=== PATIENT | female | born 1950 | race Caucasian/White ===

== ENCOUNTER 2020-09-30 15:39 | Inpatient (IN) | payer MEDICARE, BC ==
[2020-09-30] MEDS ORDERED: Lorazepam 2 MG/ML VIAL ONE ×3 (15:41→22:49)
--- NOTE | 2020-09-30 15:56 | CT ---
CT HEAD WITHOUT IV CONTRAST COMPARISON: 11/09/2005 HISTORY: Level 1 stroke alert. Right gaze avulsion. TECHNIQUE: Axial CT imaging at 5 mm intervals from vertex through skull base without contrast FINDINGS: Mild cerebral volume loss is present not unexpected for patient's age. There is no evidence of an acu te infarction, hemorrhage, mass effect, or midline shift. The ventricular system is normal in size, shape, and position. Skull base has a normal CT appearance. Visualized paranasal sinuses are clear. Osseous structures appear intact. IMPRESSION: 1. No acute intracranial abnormality demonstrated. 2. Above findings discussed Dr. Devries in the emergency department on 09/30/2020 at 1551 hours.
[2020-09-30 16:00] LABS: #Basophils 0.1 thou/uL (0.0-0.2); #Lymphocytes 2.3 thou/uL (1.20-3.40); #Monocytes 0.7 thou/uL (0.11-0.59); #Neutrophils 7.9 thou/uL (1.40-6.50); %Basophils 0.8 % (0.0-1.0); %Eosinophils 0.2 % (0.0-10.0); %Lymphocytes 20.4 % (21.0-51.0); %Monocytes 6.6 % (0.0-10.0); Hemoglobin 14.4 g/dL (12.0-16.0); Mean Corpuscular HGB CONC 33.8 g/dL (32.0-36.0); Mean Corpuscular Hemoglobin 31.4 pg (27.0-31.0); Mean Corpuscular Volume 92.9 fL (78.0-98.0); Mean Platelet Volume 8.2 fL (7.4-10.4); Platelet Count 301 thou/uL (130-400); RBC Distribution Width 12.6 % (11.5-14.5); Red Blood Cell (RBC) Count 4.58 mill/uL (4.20-5.40)
[2020-09-30] MEDS ORDERED: niCARdipine 20MG In NaCl 0 MG/0 ML BAG ONE (16:02)
[2020-09-30 16:06] LABS: PTT 26.2 sec (22.9-36.1); Prothrombin Time 12.7 sec (12.0-14.7)
[2020-09-30 16:08] LABS: INR-International Normal Ratio 0.9
--- NOTE | 2020-09-30 16:21 | CT ---
EXAM: CT angiogram head and neck with IV contrast and 3-D reconstructions PROVIDED CLINICAL HISTORY: Level 1 stroke alert. Right gaze diversion. COMPARISON: None FINDINGS: Vascular calcifications are seen in the aortic arch. There is a normal arrangement of the great vesse ls at the aortic arch which are patent. Portions of the left subclavian artery as well as the most proximal left common carotid artery are partially obscured due to artifact from dense contrast within the adjacent venous structures. The right subclavian artery and innominate artery as well as visualized portions of the left subclavian artery are patent. Bilateral common carotid arteries are o therwise patent. There is mild atherosclerotic vascular calcifications and plaque seen in the distal common carotid ar teries bilaterally and at the carotid artery bifurcation. There is mild narrowing involving the proximal portion of each internal carotid artery, but the degree of narrowing is less than 50%. Gin us portion of each internal carotid artery appear irregular, but is felt to most likely be artifactual. Vascular calcifications are seen in the carotid siphons bilaterally. Bilateral vertebral arteries and basilar artery are patent. Posterior cerebral arteries are patent bi laterally. Bilateral anterior cerebral and middle cerebral arteries are patent. No focal stenosis or branch occl usion is appreciated. No intracranial aneurysm is seen. There is a subcentimeter hypodense nodule seen in the right lobe of the thyroid gland. Visualized upper lung zones are clear. Degenerative changes are seen in the cervical spine. IMPRESSION: 1. Mild atherosclerotic plaque and calcifications involving the proximal internal carotid arteries bi laterally without significant stenosis. 2. Suggested irregularity involving petrous portions of each internal carotid artery, but this is lik justina artifactual given the symmetric finding. 3. No focal stenosis or branch occlusion is seen involving the [place] or vertebrobasilar sy stem. 4. Small subcentimeter hypodense nodule right lobe of thyroid gland. Follow-up thyroid ultrasound is suggested. 5. Above findings discussed with Dr. Devries in the emergency department on 09/30/2020 at 1618 hours
[2020-09-30 16:25] LABS: ALT (SGPT) Less than 7 U/L (8-55); AST (SGOT) 10 U/L (5-34); Albumin 4.5 g/dL (3.4-4.8); Alkaline Phosphatase 110 U/L (40-110); Anion Gap 23 mmol/L (10-20); BUN (Urea Nitrogen) 15 mg/dL (9.8-20.1); Bilirubin, Total 0.5 mg/dL (0.2-1.2); CK (CPK) 56 U/L (29-168); Calc. Creatinine Clearance 0 mL/min (70-130); Carbon Dioxide 20 mmol/L (23-31); Chloride 102 mmol/L (98-107); Globulin 3.8 g/dL (2.4-3.5); Glucose 120 mg/dL (80-115); Potassium 4.7 mmol/L (3.5-5.1); Protein, Total 8.3 g/dL (5.8-8.1); Sodium 140 mmol/L (136-145)
[2020-09-30 16:32] LABS: Magnesium 1.9 mg/dL (1.6-2.6)
[2020-09-30 16:33] LABS: Lipase Less than 4 U/L (8-78)
--- NOTE | 2020-09-30 16:53 | RAD ---
Exam: Chest one view HISTORY:Level 1 stroke. Altered mental status. Comparison: 06/19/2009 FINDINGS: Cardiac silhouette: Normal Aorta: Unremarkable Pulmonary vessels: Normal Costophrenic angles: Clear LUNGS: No masses or consolidation. Pneumothorax: None Osseous abnormalities: None IMPRESSION: No acute cardiopulmonary process.
[2020-09-30 16:57] LABS: Bilirubin Negative (Negative); Blood, Urine Negative (Negative); Clarity Clear (Clear); Glucose, Urine (Dipstick) Normal (Negative); Ketone, Urine 40 mg/dL (Negative); Leukocyte Negative Leu/uL (Negative); Nitrite Negative (Negative); Protein, Urine (Dipstick) 10 mg/dL (Neg-Trace); Urobilinogen Normal mg/dL (Less than 2)
[2020-09-30 17:00] LABS: Specific Gravity, Urine Greater than 1.060 (1.002-1.036)
[2020-09-30] MEDS ORDERED: Aspirin Chewable 81 MG TAB ONE (17:18)
--- NOTE | 2020-09-30 17:34 | PDOC.HHP ---
Hospitalist HPI - History of Present Illness Aphasia History of Present Illness: PCP: Dr. Templeton The patient is a 70-year-old female with a past medical history significant for severe anxiety/depression, agoraphobia, Parkinson's disease and hypothyroidism that presents to the emergency department via EMS for the above complaint. The patient and her sister, who was present at that time reports that the patient had the acute onset of aphasia at approximately 2:30 in the afternoon. They report that the patient was speaking on the phone to someone, however, the patient sister could not hear what she was saying. When she went to check on the patient, the patient was unable to speak or follow any commands. Her sister reports that she has Parkinson's disease and when she gets tired, she tends to have difficulty speaking and has increased tremor. She also suffers from "severe anxiety" and has a fear of going to the hospital. Over the past couple days, the patient has been dealing with multiple stressors at home, which has "worn her out". Patient is adamant that her symptoms are from her anxiety and Parkinson's disease. Patient denies any recent fall/trauma. She denies any recent fever/illness. No known Covid contacts. She admits to loss of smell, however, this is chronic due to her Parkinson's disease. She reports the addition of a new medication called ONGENTYS, which she started 2 days ago. She has taken 2 doses at night. She denies any recent surgeries. She denies any chest pain, heart palpitations or lightheadedness. She denies any shortness of breath, cough or wheezing. No history of DVT/PE. She denies any abdominal pain, nausea, vomiting, diarrhea. No hematochezia/melena. She denies any dysuria or hematuria. ED Course: VITAL SIGNS WedSep 30, 2020 15:48 MARITZA Sommer Jennifer BP: 152/90, Pulse: 135, Resp: 25 (Severe Distress), Pain: 0, O2 sat: 100 on (Non Rebreather), Time: 09/30/2020 15:48. VITAL SIGNS WedSep 30, 2020 16:19 MARITZA Sommer Jennifer BP: 176/68, MAP: 104, Pulse: 94, Resp: 17, Temp: 97.7 (Oral), Pain: 0, O2 sat: 99 on (Room Air), Time: 09/30/2020 16:19. Medications: aspirin oral 324 mg Oral Given 17:23 09/30/2020 carbidopa-levodopa 3 tab(s) Oral Given 17:15 09/30/2020 LORazepam injection 1 mg IV Push Given 16:06 09/30/2020 LORazepam injection 1 mg IV Push Given 15:48 09/30/2020 Hospitalist ROS - Review of Systems All other systems reviewed; all pertinent +/- noted in HPI/Subj - Medication Medications: ALPRAZolam WedSep 30, 2020 16:48 MARITZA Sommer Jennifer tablet : Strength - 0.5 mg : ORAL Patient Dose: 1 tab(s) Oral every 8 hours PRN. apple cider vinegar WedSep 30, 2020 16:48 MARITZA Sommer Jennifer tablet : Strength - 500 mg : ORAL Patient Dose: UNK mg Oral once a day. B Complex oral WedSep 30, 2020 16:49 MARITZA Sommer Jennifer capsule : ORAL Patient Dose: 1 cap(s) Oral once a day. Calcium Citrate + D WedSep 30, 2020 16:50 MARITZA Sommer Jennifer tablet : Strength - 315 mg calcium-200 unit : ORAL Patient Dose: 1 tab(s) Oral 2 times a day. carbidopa-levodopa WedSep 30, 2020 16:51 MARITZA Sommer Jennifer tablet : Strength - 25 mg-100 mg : ORAL Patient Dose: 3 tab(s) Oral every 3 to 5 hours. Co Q-10 WedSep 30, 2020 16:52 MARITZA Sommer Jennifer capsule : Strength - 30 mg : ORAL Patient Dose: 1 tab(s) Oral 3 times a day. donepezil WedSep 30, 2020 16:53 MARITZA Sommer Jennifer + tablet : Strength - 10 mg : ORAL Patient Dose: 1 tab(s) Oral once a day (at bedtime). DULoxetine WedSep 30, 2020 16:53 MARITZA Sommer Jennifer capsule,delayed release(DR/EC) : Strength - 60 mg : ORAL Patient Dose: 2 cap(s) Oral once a day. levothyroxine oral WedSep 30, 2020 16:53 Avery, RN, Idalia tablet : Strength - 50 mcg : ORAL Patient Dose: 1 tab(s) Oral once a day (in the morning). mirtazapine WedSep 30, 2020 16:54 MARITZA Sommer Jennifer tablet : Strength - 30 mg : ORAL Patient Dose: 1 tab(s) Oral once a day (at bedtime). Monte[place] 3 capsule WedSep 30, 2020 16:55 MARITZA Sommer Jennifer capsule : ORAL Patient Dose: 1 g Oral 2 times a day. ONGENTYS WedSep 30, 2020 16:56 MARITZA Sommer Jennifer Allergies: No known drug allergies Hospitalist History - Past Medical History Source: patient, RN notes reviewed Cardiac: reports: HTN Pulmonary: reports: Other (TAWANDA with CPAP at night) POMPOM MAKER: reports: Other (Parkinsons Disease) Psych: reports: Anxiety, Depression, Other (Agoraphobia) Endocrine: reports: Hypothyroidism - Past Surgical History Past Surgical History: reports: Appendectomy, Other (bunion of right foot, left knee sx) - Family History Family History: denies: cerebrovascular accident - Social History Smoking Status: Never smoker Alcohol: reports: None Drugs: reports: none Living Situation: With Family (Sister currently lives with her at home) Occupation: Retired from [employer] Activity level: uses cane/walker - Exam General Appearance: NAD, awake alert. negative: ill appearing General - other findings: Facial twisting, intermittent, baseline per patient and sister Eye: PERRL, anicteric sclera ENT: normocephalic atraumatic, dry oral mucosa Neck: supple, no lymphadenopathy, no carotid bruit Heart: RRR, no murmur, no gallops, no rubs, normal peripheral pulses Respiratory: CTAB, no wheezes, no rales, no ronchi, normal chest expansion, no tachypnea Gastrointestinal: soft, non-tender, non-distended, normal bowel sounds, no guarding, no rigidity Extremities: no cyanosis, no edema Skin: no rashes Neurological: cranial nerve grossly intact, no focal deficits Neurological - other findings: Slowed speech, baseline per patient and sister NIH 0 Psychiatric: normal affect, A&O x 3 Hospitalist Results - Labs Result Diagrams: 09/30/20 15:45 09/30/20 15:45 Lab results: WBC 11.0 thou/uL (4.8-10.8) H 09/30/20 15:45 Hgb 14.4 g/dL (12.0-16.0) 09/30/20 15:45 Hct 42.6 % (36.0-47.0) 09/30/20 15:45 MCV 92.9 fL (78.0-98.0) 09/30/20 15:45 Plt Count 301 thou/uL (130-400) 09/30/20 15:45 Neutrophils % 72.0 % (42.0-75.0) 09/30/20 15:45 Sodium 140 mmol/L (136-145) 09/30/20 15:45 Potassium 4.7 mmol/L (3.5-5.1) 09/30/20 15:45 Chloride 102 mmol/L (98-107) 09/30/20 15:45 Carbon Dioxide 20 mmol/L (23-31) L 09/30/20 15:45 BUN 15 mg/dL (9.8-20.1) 09/30/20 15:45 Creatinine 0.84 mg/dL (0.6-1.1) 09/30/20 15:45 Glucose 120 mg/dL (80-115) H 09/30/20 15:45 Calcium 10.0 mg/dL (7.8-10.44) 09/30/20 15:45 Total Bilirubin 0.5 mg/dL (0.2-1.2) 09/30/20 15:45 AST 10 U/L (5-34) 09/30/20 15:45 ALT Less than 7 U/L (8-55) L 09/30/20 15:45 Alkaline Phosphatase 110 U/L (40-110) 09/30/20 15:45 Creatine Kinase 56 U/L (29-168) 09/30/20 15:45 Troponin I Less than 0.010 ng/mL (< 0.028) 09/30/20 15:45 B-Natriuretic Peptide 57.0 pg/mL (0-100) 09/30/20 15:45 Serum Total Protein 8.3 g/dL (5.8-8.1) H 09/30/20 15:45 Albumin 4.5 g/dL (3.4-4.8) 09/30/20 15:45 Lipase Less than 4 U/L (8-78) L 09/30/20 15:45 Urine Ketones 40 mg/dL (Negative) A 09/30/20 16:32 Urine Blood Negative (Negative) 09/30/20 16:32 Urine Nitrite Negative (Negative) 09/30/20 16:32 Ur Leukocyte Esterase Negative Luisana/uL (Negative) 09/30/20 16:32 - EKG Interpretation EKG: Heart rate 89 QTc 481 normal sinus rhythm inferior lateral T wave depressions no ST elevation - Radiology Interpretation Chest x-ray Status: report reviewed by me Additional Comment: IMPRESSION: No acute cardiopulmonary process. CT scan - head Status: report reviewed by me Additional Comment: CT brain IMPRESSION: 1. No acute intracranial abnormality demonstrated. 2. Above findings discussed Dr. Devries in the emergency department on 09/30/2020 at 1551 hours. CTA head and neck IMPRESSION: 1. Mild atherosclerotic plaque and calcifications involving the proximal internal carotid arteries bilaterally without significant stenosis. 2. Suggested irregularity involving petrous portions of each internal carotid artery, but this is likely artifactual given the symmetric finding. 3. No focal stenosis or branch occlusion is seen involving the [place] or vertebrobasilar system. 4. Small subcentimeter hypodense nodule right lobe of thyroid gland. Follow-up thyroid ultrasound is suggested. 5. Above findings discussed with Dr. Devries in the emergency department on 09/30/2020 at 1618 hours Hospitalist H&P A/P - Problem (1) TIA (transient ischemic attack) Code(s): G45.9 - TRANSIENT CEREBRAL ISCHEMIC ATTACK, UNSPECIFIED Status: Acute (2) Thyroid nodule Code(s): E04.1 - NONTOXIC SINGLE THYROID NODULE Status: Acute (3) Parkinsons disease Code(s): G20 - PARKINSON'S DISEASE Status: Chronic (4) Anxiety and depression Code(s): F41.9 - ANXIETY DISORDER, UNSPECIFIED; F32.9 - MAJOR DEPRESSIVE DISORDER, SINGLE EPISODE, UNSPECIFIED Status: Chronic (5) Obstructive sleep apnea Code(s): G47.33 - OBSTRUCTIVE SLEEP APNEA (ADULT) (PEDIATRIC) Status: Chronic - Plan Plan: A patient with Parkinson's disease and severe anxiety presents for aphasia. CT brain/CTA head and neck no acute intracranial process or significant stenosis. Patient not a TPA candidate due to rapid improvement of symptoms. #TIA Acute onset aphasia last seen normal 1434, 1 hour STYLE ADVISOR Rapid improvement of symptoms, no TPA CT/CTA no no acute intracranial process, no significant stenosis Patient has severe anxiety and Parkinson's disease and has had episodes similar in the past. Reports recent stressors at home which may have compounded the problem. TIA versus PD/anxiety Order MRI, echocardiogram. Consult neurology and stroke team. Continue aspirin, start high intensity statin. Check TSH, FLP, B12/folate. Permissive hypertension. Neurochecks. #Thyroid nodule Incidental finding on CTA neck. Recommend follow-up ultrasound, nonemergent. History of hypothyroidism. Check TSH. Restart home dose levothyroxine. #Parkinson's disease Takes carbidopa levodopa. Received home dose in ED. Recently started new medication, Ongentys 2 days ago Restart carbidopa-levodopa, hold Ongentys for now. #Anxiety depression Patient and sister reports severe anxiety. Patient reports diagnosed with agoraphobia recently. Takes duloxetine and mirtazapine and alprazolam as needed. Restart home medications. #Obstructive sleep apnea Compliant with home CPAP. Consult RT for CPAP at night. #SCDs for DVT prophylaxis. No GI prophylaxis. CODE STATUS is DN AR. Confirmed CODE STATUS with patient who is of sound mind and sister at bedside. Discussed case with attending physician, Dr. Earl, who agrees with plan of care.
[2020-09-30] MEDS ORDERED: hydrALAZINE 20 MG/ML VIAL SLOW IVP PRN (18:13)
[2020-09-30] MEDS ORDERED: Labetalol HCl 100 MG/20 ML VIAL SLOW IVP PRN (18:13)
[2020-09-30] MEDS ORDERED: Senokot S 8.6-50 MG TAB PO PRN (18:16)
[2020-09-30] MEDS ORDERED: Acetaminophen 325 MG TAB PO PRN (18:16)
[2020-09-30] MEDS ORDERED: Ondansetron ODT 4 MG TAB PO PRN (18:16)
[2020-09-30 18:51] LABS: SARS-CoV-2 NAA Rapid Test Not Detected (NotDetected)
[2020-09-30 20:03] LABS: Troponin I 0.026 ng/mL (< 0.028)
[2020-09-30 20:29] LABS: Thyroid Stimulating Hormone 1.1124 uIU/mL (0.35-4.94)
[2020-09-30 20:31] LABS: Vitamin B12 Greater than 2000 pg/mL (211-911)
[2020-09-30 23:00] LABS: Troponin I 0.031 ng/mL (< 0.028)
[2020-10-01] MEDS: Atorvastatin Calcium 40 MG TAB PO SCH ×2 (01:07→21:04)
[2020-10-01 02:03] VITALS: BMI 34.7
[2020-10-01 05:44] LABS: #Basophils 0.1 thou/uL (0.0-0.2); #Lymphocytes 1.7 thou/uL (1.20-3.40); #Monocytes 0.6 thou/uL (0.11-0.59); #Neutrophils 4.8 thou/uL (1.40-6.50); %Basophils 0.7 % (0.0-1.0); %Eosinophils 0.4 % (0.0-10.0); %Lymphocytes 23.7 % (21.0-51.0); %Monocytes 7.6 % (0.0-10.0); %Neutrophils 67.6 % (42.0-75.0); Hemoglobin 12.5 g/dL (12.0-16.0); Mean Corpuscular HGB CONC 33.6 g/dL (32.0-36.0); Mean Corpuscular Hemoglobin 31.2 pg (27.0-31.0); Platelet Count 225 thou/uL (130-400); RBC Distribution Width 12.5 % (11.5-14.5); White Blood Cell (WBC) Count 7.1 thou/uL (4.8-10.8)
[2020-10-01 06:31] LABS: Anion Gap 12 mmol/L (10-20); BUN (Urea Nitrogen) 10 mg/dL (9.8-20.1); Calc. Creatinine Clearance 110 mL/min (70-130); Calcium 8.9 mg/dL (7.8-10.44); Carbon Dioxide 29 mmol/L (23-31); Cardiac Risk 3.1 (Less than 4.5); Chloride 103 mmol/L (98-107); Cholesterol 188 mg/dl (< 200 Desired); Glucose 93 mg/dL (80-115); HDL Cholesterol 60 mg/dL (>60 Neg Risk); LDL Cholesterol, Calculated 109 mg/dL; Potassium 3.7 mmol/L (3.5-5.1); Sodium 140 mmol/L (136-145); Triglycerides 96 mg/dL (Less than 150)
[2020-10-01] MEDS ORDERED: FLU VACC QS2020-21(65YR UP)/PF 240 MCG/0.7 ML SYRINGE IM ONE (09:00)
[2020-10-01] MEDS: Aspirin 325 mg Enteric Coated Tablet PO SCH (09:27)
[2020-10-01] MEDS: Lorazepam 2 MG/ML VIAL SLOW IVP PRN ×2 (11:34→18:31)
--- NOTE | 2020-10-01 12:38 | MRI ---
MRI of thebrain without contrast: 10/01/2020 COMPARISON:None available HISTORY:Difficulty talking last night, possible stroke TECHNIQUE: Multiplanar multisequence MR imaging of thebrain without contrast Findings:The diffusion weighted imaging demonstrates no evidence for acute infarction. No evidence for intracranial hemorrhage is noted on the axial gradient echo imaging. Arterial flow voids at the axial level of the skull base appear unremarkable on the T2-weighted imagi ng. Motion degrades assessment of the axial T2 sequence. The imaged paranasal sinuses and mastoid air cells appear grossly unremarkable. Regional bone marrow signal intensity appears unremarkable on the sagittal T1-weighted imaging. There are a few punctate foci of increased STIR signal within the periventricular white matter sugges ting minimal small vessel disease. IMPRESSION:No evidence for acute infarction or intracranial hemorrhage.
--- NOTE | 2020-10-01 13:16 | CON ---
NEUROLOGY CONSULTATION DATE OF CONSULTATION: 10/01/2020 REASON FOR CONSULTATION: Transient ischemic attack HISTORY OF PRESENT ILLNESS: Ms. Hanny Salcedo is a 70-year-old female with medical history significant for severe anxiety, depression, agoraphobia, Parkinson disease, and hypothyroidism, presented to the emergency department via EMS because of an episode of aphasia. According to the patient's sister, she had acute onset of aphasia approximately 2:30 p.m. on 09/30/2020 and she was not able to hear anything and she has difficulty to speak and seems confused. Per patient's sister, she does have history of Parkinson disease and usually gets tired and has difficulty but this episode was different from her usual presentation, so she decided to bring her to the emergency room for further evaluation. The patient denies any focal numbness, focal paresthesias, nausea, vomiting, headache, chest pain, abdominal pain, recent illness, or recent exposure to COVID. She does have difficulty walking and speaking and due to Parkinson disease and generalized weakness and chronic loss of smell, she was started on a new medication 2 days ago. In the emergency room, she was given aspirin, Parkinson's medication, Ativan for anxiety, and admitted for further evaluation. REVIEW OF SYSTEMS: All systems reviewed and were negative except the pertinent positive and negative mentioned in the HPI. HOME MEDICATIONS: 1. Alprazolam. 2. Vitamin B complex. 3. Calcium citrate. 4. Carbidopa-levodopa. 5. Coenzyme Q. 6. Donepezil. 7. Duloxetine. 8. Levothyroxine. 9. Mirtazapine. 10. Kalama-3. 11. Ongentys new medication. ALLERGIES: NO KNOWN DRUG ALLERGIES. PAST MEDICAL HISTORY: Hypertension, obstructive sleep apnea with CPAP at night, Parkinson disease, anxiety, depression, depression, hypothyroidism. PAST SURGICAL HISTORY: Appendectomy. FAMILY HISTORY: No family history of cerebrovascular accident. SOCIAL HISTORY: The patient lives with family. Sister is currently living with her at home. Denies smoking, alcohol, illegal drug use. She is retired from [employer] and uses a cane and a walker. Vital Signs & Weight: Vital Signs (12 hours) Temp Pulse Pulse Pulse Resp BP BP 10/01/20 11:56 98.5 F 76 20 10/01/20 10:05 88 87 118/56 L 118/59 L 10/01/20 07:55 98.7 F 70 20 10/01/20 04:15 97.8 F 71 20 BP Pulse Ox 10/01/20 11:56 127/59 L 96 10/01/20 10:05 10/01/20 07:55 124/60 96 10/01/20 04:15 136/60 93 L Weight Weight 196 lb I&O: 09/30/20 10/01/20 10/02/20 06:59 06:59 06:59 Intake Total 480 Balance 480 Result Diagrams: 10/01/20 05:20 10/01/20 05:20 Additional Labs: Accuchecks 09/30/20 15:41 POC Glucose 111 H Active Medications Generic Name Dose Route Start Last Admin Trade Name Jean-Claude PRN Reason Stop Dose Admin Aspirin 325 mg 10/01/20 09:00 10/01/20 09:27 Aspirin 325 Mg Enteric Coated Tablet PO 325 mg DAILY STEFAN Administration Atorvastatin Calcium 40 mg 09/30/20 21:00 10/01/20 01:07 Atorvastatin Calcium 40 Mg Tab PO Not Given HS STEFAN Carbidopa/Levodopa 1.5 tab 10/01/20 12:00 10/01/20 14:46 Carbidopa/Levodopa Cr 50-200 Mg Tablet PO Not Given [id number] STEFAN Lorazepam 1 mg 09/30/20 22:14 10/01/20 11:34 Lorazepam 2 Mg/Ml Vial SLOW IVP 1 mg Q4H PRN Administration Anxiety Vital Signs (12 hours) Temp Pulse Pulse Pulse Resp BP BP 10/01/20 11:56 98.5 F 76 20 10/01/20 10:05 88 87 118/56 L 118/59 L 10/01/20 07:55 98.7 F 70 20 10/01/20 04:15 97.8 F 71 20 BP Pulse Ox 10/01/20 11:56 127/59 L 96 10/01/20 10:05 10/01/20 07:55 124/60 96 10/01/20 04:15 136/60 93 L Weight Weight 196 lb PHYSICAL EXAMINATION: General Appearance: NAD, awake alert. negative: ill appearing General - other findings: Facial twisting, intermittent, baseline per patient and sister Eye: PERRL, anicteric sclera ENT: normocephalic atraumatic, dry oral mucosa Neck: supple, no lymphadenopathy, no carotid bruit Heart: RRR, no murmur, no gallops, no rubs, normal peripheral pulses Respiratory: CTAB, no wheezes, no rales, no ronchi, normal chest expansion, no tachypnea Gastrointestinal: soft, non-tender, non-distended, normal bowel sounds, no guarding, no rigidity Extremities: no cyanosis, no edema Skin: no rashes Neurological: Mental status, the patient is alert and oriented to person, place, and time. Slow speech, but no receptive aphasia or dysarthria. Cranial nerves 2 through 12 intact. Motor, muscle tone is increased. Bulk is normal. Moving all 4 extremities equally and symmetrically. Sensory withdraws to nailbed pressure bilaterally. Gait deferred due to patient's safety reason. Positive tremor. DATA REVIEWED: I review the labs and head CT, which did not reveal any acute intracranial pathology. CTA of the head and neck did not reveal hemodynamically significant stenosis. Lab results: WBC 11.0 thou/uL (4.8-10.8) H 09/30/20 15:45 Hgb 14.4 g/dL (12.0-16.0) 09/30/20 15:45 Hct 42.6 % (36.0-47.0) 09/30/20 15:45 MCV 92.9 fL (78.0-98.0) 09/30/20 15:45 Plt Count 301 thou/uL (130-400) 09/30/20 15:45 Neutrophils % 72.0 % (42.0-75.0) 09/30/20 15:45 Sodium 140 mmol/L (136-145) 09/30/20 15:45 Potassium 4.7 mmol/L (3.5-5.1) 09/30/20 15:45 Chloride 102 mmol/L (98-107) 09/30/20 15:45 Carbon Dioxide 20 mmol/L (23-31) L 09/30/20 15:45 BUN 15 mg/dL (9.8-20.1) 09/30/20 15:45 Creatinine 0.84 mg/dL (0.6-1.1) 09/30/20 15:45 Glucose 120 mg/dL (80-115) H 09/30/20 15:45 Calcium 10.0 mg/dL (7.8-10.44) 09/30/20 15:45 Total Bilirubin 0.5 mg/dL (0.2-1.2) 09/30/20 15:45 AST 10 U/L (5-34) 09/30/20 15:45 ALT Less than 7 U/L (8-55) L 09/30/20 15:45 Alkaline Phosphatase 110 U/L (40-110) 09/30/20 15:45 Creatine Kinase 56 U/L (29-168) 09/30/20 15:45 Troponin I Less than 0.010 ng/mL (< 0.028) 09/30/20 15:45 B-Natriuretic Peptide 57.0 pg/mL (0-100) 09/30/20 15:45 Serum Total Protein 8.3 g/dL (5.8-8.1) H 09/30/20 15:45 Albumin 4.5 g/dL (3.4-4.8) 09/30/20 15:45 Lipase Less than 4 U/L (8-78) L 09/30/20 15:45 Urine Ketones 40 mg/dL (Negative) A 09/30/20 16:32 Urine Blood Negative (Negative) 09/30/20 16:32 Urine Nitrite Negative (Negative) 09/30/20 16:32 Ur Leukocyte Esterase Negative Luisana/uL (Negative) 09/30/20 16:32 - EKG Interpretation EKG: Heart rate 89 QTc 481 normal sinus rhythm inferior lateral T wave depressions no ST elevation - Radiology Interpretation Chest x-ray Status: report reviewed by me Additional Comment: IMPRESSION: No acute cardiopulmonary process. CT scan - head Status: report reviewed by me Additional Comment: CT brain IMPRESSION: 1. No acute intracranial abnormality demonstrated. CTA head and neck IMPRESSION: 1. Mild atherosclerotic plaque and calcifications involving the proximal internal carotid arteries bilaterally without significant stenosis. 2. Suggested irregularity involving petrous portions of each internal carotid artery, but this is likely artifactual given the symmetric finding. 3. No focal stenosis or branch occlusion is seen involving the [place] or vertebrobasilar system. 4. Small subcentimeter hypodense nodule right lobe of thyroid gland. Follow-up thyroid ultrasound is suggested. ASSESSMENT AND PLAN: (1) TIA (transient ischemic attack) Code(s): G45.9 - TRANSIENT CEREBRAL ISCHEMIC ATTACK, UNSPECIFIED Status: Acute (2) Thyroid nodule Code(s): E04.1 - NONTOXIC SINGLE THYROID NODULE Status: Acute (3) Parkinsons disease Code(s): G20 - PARKINSON'S DISEASE Status: Chronic (4) Anxiety and depression Code(s): F41.9 - ANXIETY DISORDER, UNSPECIFIED; F32.9 - MAJOR DEPRESSIVE DISORDER, SINGLE EPISODE, UNSPECIFIED Status: Chronic (5) Obstructive sleep apnea Code(s): G47.33 - OBSTRUCTIVE SLEEP APNEA (ADULT) (PEDIATRIC) Status: Chronic Ms. Hanny Lorenzana is a 70-year-old female with history significant for Parkinson disease and anxiety, presented with an episode of aphasia. Head CT reviewed, which was negative for acute intracranial pathology. CT of the head and neck did not reveal hemodynamically significant stenosis. Consider MRI of the brain to rule out acute intracranial process. 2D echo to evaluate for left ventricular ejection fraction and to rule out thrombus or patent foramen ovale. Telemetry to rule out arrhythmia. Continue aspirin and high-intensity statin for secondary stroke prevention. Check hemoglobin A1c, fasting lipid panel, vitamin B12, folate, and TSH. Permissive control of blood pressure at this time. Strict control of blood glucose. EEG to rule out cortical irritability. Continue Parkinson's medications. Continue home medications. Continue medical management per primary team. PT/OT/Speech. Deep venous thrombosis prophylaxis. Plan discussed in detail. We will continue to follow. Thank you for the consult. Job ID: [id number] [id number]
[2020-10-01] MEDS: Carbidopa/Levodopa CR 50-200 mg Tablet PO SCH ×6 (14:40→23:01)
--- NOTE | 2020-10-01 15:23 | PDOC.HOSPP ---
- Subjective Encounter Date: 10/01/20 Encounter Time: 09:45 Subjective: is speaking fluently now, has no weakness anywhere her sister is at bedside no chest pain or palp or nausea has not amb yet, normally walks with walker at home - Objective Vital Signs & Weight: Vital Signs (12 hours) Temp Pulse Pulse Pulse Resp BP BP 10/01/20 11:56 98.5 F 76 20 10/01/20 10:05 88 87 118/56 L 118/59 L 10/01/20 07:55 98.7 F 70 10/01/20 04:15 97.8 F 71 20 BP Pulse Ox 10/01/20 11:56 127/59 L 96 10/01/20 10:05 10/01/20 07:55 124/60 96 10/01/20 04:15 136/60 93 L Weight Weight 196 lb I&O: 09/30/20 10/01/20 10/02/20 06:59 06:59 06:59 Intake Total 480 Balance 480 Result Diagrams: 10/01/20 05:20 10/01/20 05:20 Additional Labs: Accuchecks 09/30/20 15:41 POC Glucose 111 H Hospitalist ROS - Medication Medications: Active Medications Generic Name Dose Route Start Last Admin Trade Name Freq PRN Reason Stop Dose Admin Aspirin 325 mg 10/01/20 09:00 10/01/20 09:27 Aspirin 325 Mg Enteric Coated Tablet PO 325 mg DAILY STEFAN Administration Atorvastatin Calcium 40 mg 09/30/20 21:00 10/01/20 01:07 Atorvastatin Calcium 40 Mg Tab PO Not Given HS STEFAN Carbidopa/Levodopa 1.5 tab 10/01/20 12:00 10/01/20 14:46 Carbidopa/Levodopa Cr 50-200 Mg Tablet PO Not Given [id number] STEFAN Lorazepam 1 mg 09/30/20 22:14 10/01/20 11:34 Lorazepam 2 Mg/Ml Vial SLOW IVP 1 mg Q4H PRN Administration Anxiety Hospitalist Exam Vitals: Vital Signs (12 hours) Temp Pulse Pulse Pulse Resp BP BP 10/01/20 11:56 98.5 F 76 20 10/01/20 10:05 88 87 118/56 L 118/59 L 10/01/20 07:55 98.7 F 70 20 10/01/20 04:15 97.8 F 71 20 BP Pulse Ox 10/01/20 11:56 127/59 L 96 10/01/20 10:05 10/01/20 07:55 124/60 96 10/01/20 04:15 136/60 93 L Weight Weight 196 lb General Appearance: awake alert Eye: PERRL, anicteric sclera ENT: normocephalic atraumatic, moist mucosa Neck: supple, no JVD Heart: RRR, no murmur Respiratory: no wheezes, no rales, no ronchi Gastrointestinal: soft, non-tender, non-distended, normal bowel sounds Extremities: no cyanosis, no edema Neurological: cranial nerve grossly intact, no focal deficits Psychiatric: normal affect, A&O x 3 Hosp A/P (1) TIA (transient ischemic attack) Code(s): G45.9 - TRANSIENT CEREBRAL ISCHEMIC ATTACK, UNSPECIFIED Status: Acute (2) Anxiety and depression Code(s): F41.9 - ANXIETY DISORDER, UNSPECIFIED; F32.9 - MAJOR DEPRESSIVE DISORDER, SINGLE EPISODE, UNSPECIFIED Status: Chronic (3) Obstructive sleep apnea Code(s): G47.33 - OBSTRUCTIVE SLEEP APNEA (ADULT) (PEDIATRIC) Status: Chronic (4) Parkinsons disease Code(s): G20 - PARKINSON'S DISEASE Status: Chronic (5) Obesity (BMI 30.0-34.9) Code(s): E66.9 - OBESITY, UNSPECIFIED Status: Chronic (6) Hypothyroidism Code(s): E03.9 - HYPOTHYROIDISM, UNSPECIFIED Status: Chronic Qualifiers: Hypothyroidism type: acquired Qualified Code(s): E03.9 - Hypothyroidism, unspecified (7) Dyslipidemia Code(s): E78.5 - HYPERLIPIDEMIA, UNSPECIFIED Status: Chronic - Plan aphasia has completely resolved, has no clinical motor deficits MRI shows no ac cva dc ongentys due to side effect profile of sleep attacks, not sure if this is what happened to her, but she started it 2 days back (d/w ) PT to mobilize as tolerated hemo/neurostable d/w patient and her sister at bedside ldl is 109, home meds are reconciled on Cellerix.
--- NOTE | 2020-10-01 17:44 | PDOC.EEG ---
Neurology EEG Report - Report Report: This EEG was performed using 24 channel momondo video EEG machine with 24 disc electrodes. This was an extended 2 hours 8 minutes of inpatient video EEG recording. Digital analysis of the EEG was done for spike and seizure detection which revealed no abnormalities. Background: There is a nonsustained posterior background rhythm of 8.5 -9 Hz. EEG with excessive beta activity intermixed with the background. Hyperventilation: Not performed. Photic Stimulation: No significant response. Sleep: No stage change is observed. EEG Diagnosis: Rare irregular theta activity seen during the recording. Nonsustained posterior background rhythm. Clinical Interpretation: This EEG is consistent with mild generalized nonspecific cerebral dysfunction.
[2020-10-01] MEDS ORDERED: OPICAPONE 50 MG PO SCH (21:00)
[2020-10-01] MEDS ORDERED: Mirtazapine 30 MG TAB PO SCH (21:00)
[2020-10-01] MEDS ORDERED: Donepezil HCl 10 MG TAB PO SCH (21:00)
[2020-10-02] MEDS: Carbidopa/Levodopa CR 50-200 mg Tablet PO SCH ×4 (05:22→12:54)
[2020-10-02] MEDS ORDERED: Levothyroxine Sodium 50 MCG TAB PO SCH (06:00)
[2020-10-02] MEDS ORDERED: Cyanocobalamin (Vitamin B-12) 1,000 MCG TAB PO SCH (09:00)
[2020-10-02] MEDS ORDERED: Ubidecarenone 50 MG CAP PO SCH (09:00)
[2020-10-02] MEDS ORDERED: DULoxetine 60 MG CAP PO SCH (09:00)
[2020-10-02] MEDS ORDERED: Sodium Chloride 0.9% 10 ML ONE (09:00)
[2020-10-02] MEDS ORDERED: Fish Oil 1,000 MG CAP PO SCH (09:00)
[2020-10-02] MEDS ORDERED: Non-Formulary Item 1 EACH (Omega-3 Fatty Acids/Fish Oil [Fish Oil 1,000 Mg Capsule] 1 CAP PO SCH (09:00)
[2020-10-02] MEDS: Lorazepam 2 MG/ML VIAL SLOW IVP PRN (09:02)
[2020-10-02] MEDS: Aspirin 325 mg Enteric Coated Tablet PO SCH (09:05)
[2020-10-02 11:55] VITALS: BP 163/72; TEMP 97.7
--- NOTE | 2020-10-02 14:55 | CT ---
EXAM: CT angiogram head and neck with IV contrast and 3-D reconstructions PROVIDED CLINICAL HISTORY: Level 1 stroke alert. Right gaze diversion. COMPARISON: None FINDINGS: Vascular calcifications are seen in the aortic arch. There is a normal arrangement of the great vesse ls at the aortic arch which are patent. Portions of the left subclavian artery as well as the most proximal left common carotid artery are partially obscured due to artifact from dense contrast within the adjacent venous structures. The right subclavian artery and innominate artery as well as visualized portions of the left subclavian artery are patent. Bilateral common carotid arteries are o therwise patent. There is mild atherosclerotic vascular calcifications and plaque seen in the distal common carotid ar teries bilaterally and at the carotid artery bifurcation. There is mild narrowing involving the proximal portion of each internal carotid artery, but the degree of narrowing is less than 50%. Gin us portion of each internal carotid artery appear irregular, but is felt to most likely be artifactual. Vascular calcifications are seen in the carotid siphons bilaterally. Bilateral vertebral arteries and basilar artery are patent. Posterior cerebral arteries are patent bi laterally. Bilateral anterior cerebral and middle cerebral arteries are patent. No focal stenosis or branch occl usion is appreciated. No intracranial aneurysm is seen. There is a subcentimeter hypodense nodule seen in the right lobe of the thyroid gland. Visualized upper lung zones are clear. Degenerative changes are seen in the cervical spine. IMPRESSION: 1. Mild atherosclerotic plaque and calcifications involving the proximal internal carotid arteries bi laterally without significant stenosis. 2. Suggested irregularity involving petrous portions of each internal carotid artery, but this is lik justina artifactual given the symmetric finding. 3. No focal stenosis or branch occlusion is seen involving the [place] or vertebrobasilar sy stem. 4. Small subcentimeter hypodense nodule right lobe of thyroid gland. Follow-up thyroid ultrasound is suggested. 5. Above findings discussed with Dr. Devries in the emergency department on 09/30/2020 at 1618 hours Transcribed Date/Time: 10/02/2020 2:54 PM
--- NOTE | 2020-10-02 19:29 | DIS ---
DATE OF ADMISSION: 09/30/2020 DATE OF DISCHARGE: 10/02/2020 DISCHARGE DISPOSITION: To home. PRIMARY DISCHARGE DIAGNOSIS: Transient ischemic attack. SECONDARY DISCHARGE DIAGNOSES: 1. Parkinson disease. 2. Obesity. 3. Obstructive sleep apnea. 4. Hypothyroidism. 5. Dyslipidemia. PROCEDURES DONE DURING HOSPITALIZATION: CT brain without contrast done showed no acute intracranial abnormality. CT angio of brain and neck showed mild atherosclerotic plaque and calcifications involving proximal internal carotid arteries bilaterally without significant stenosis, irregularity involving the petrous portions of each internal carotid artery, but this is likely artifact given the symmetric finding. No focal stenosis or branch occlusion seen involving [place] or vertebrobasilar system. MRI brain showed no evidence of acute infarct or intracranial hemorrhage. Echo with 2D Doppler showed ejection fraction of 55%-60%. EEG done showed nonspecific mild generalized cerebral dysfunction. H and H 12 and 37, platelet count 225, MCV is 93, white count of 7, BUN 10, creatinine 0.6, total cholesterol 188, triglycerides 96, LDL 109, HDL 60. Vitamin B12 greater than 2000, folic acid low at 5.20. COVID-19 PCR was not detected on 09/30/2020. DISCHARGE MEDICATION: 1. Donepezil 10 mg p.o. at bedtime. 2. Vitamin B12, 5000 mcg p.o. daily. 3. CoQ10, 200 mg p.o. daily. 4. Cymbalta 120 mg p.o. daily. 5. Vitamin D3, 50 mcg p.o. daily. 6. Fish oil 1000 mg p.o. daily. 7. Levothyroxine 50 mcg p.o. daily. 8. Mirtazapine 30 mg p.o. at bedtime. 9. Sinemet controlled release every 2 hours 20 minutes 5 times a day when awake. 10. Xanax extended release 2 mg p.o. daily. 11. Aspirin 81 mg p.o. daily. 12. Folic acid 1 mg p.o. daily. 13. Zetia 10 mg p.o. daily. ALLERGIES: TO STATINS. DISCHARGE PLAN: The patient to follow up with her primary neurologist at [facility] in 1 week and primary care physician, Dr. Roque, in 1 week. BRIEF COURSE DURING HOSPITALIZATION: The patient initially got admitted on the September 30 after she had an episode of aphasia around 2:30 in the afternoon when she was talking to her sister on the phone. EMS was summoned after sister went to check on her. The patient apparently had a multiple stressors at home and was worn out as well. She was also initiated on Ongentys for her Parkinson disease in the prior week prior to arrival. In view of these symptoms, the patient was admitted to Stroke Unit and has had a stroke evidence-based protocol followed. The patient's aphasia completely resolved during her stay here. She had complete neurologic workup including CT brain without contrast, CT angio of brain and neck, MRI brain and EEG as well. There is no sign of acute CVA. The patient likely had a TIA, which got resolved, versus her new medication Ongentys likely causing a sleep attack when she was on the phone. Again, this circumstances of this is unclear. She needs to follow up with her neurologist in 1 week to see if she can be started on the lower dose if this medication is required for her Parkinson's with close monitoring. She is otherwise hemodynamically stable and has ambulated well with physical therapy. She was evaluated by Dr. Reed for Neurology as well here. She is cleared for discharge today. Please note, I have seen and examined the patient on the day of discharge. Job ID: [id number]
--- NOTE | 2020-10-03 10:53 | PQF ---
CLINICAL DOCUMENTATION CLARIFICATION FORM: Dear Dr. Zhu: Date / Time: 10/03/20 1038 Please exercise your independent, professional judgment in responding to the clarification form. Clinical indicators are provided on the bottom of this form for your review Please check appropriate box(es): Major Depressive Disorder [ ] Recurrent [ ] Single episode [ ] Mild [ ] Moderate [ ] Severe [ ] Other diagnosis [ x] Unable to determine In addition, please specify: Present on Admission (POA): [ x ] Yes [ ] No [ ] Unable to determine Physician Signature: Date/Time: For continuity of documentation, please document condition throughout progress notes and discharge summary. Thank You. To be completed by CDI/Coding staff for physician review: Present Clinical Indicators - Signs / Symptoms / Labs Results and Location in Medical Record [ x] Depression Anxiety/Depression- Attending [facility] 09/30/20 [ ] [ ] [ ] Present Risk Factors Results and Location in Medical Record [ x ] Depression Anxiety/Depression- Attending H&P A/P 09/30/20 [ ] [ ] [ ] Present Treatments Results and Location in Medical Record [ x ] Antidepressant Cymbalta resumed- 10/02/20 [ ] [ ] [ ] CDS/Neonatal Social Worker Signature: Fariba Oro Phone #: [phone] Date/Time: 10/03/20 1038 This is a permanent part of the Medical Record [facility]
== END 2020-10-02 12:31 | disposition home health service (06) | DRG 69 ==
LOC: ERS 15:39 → 3SE 17:15
PROVIDERS: ADMIT Internal Medicine; ATTEND Internal Medicine
DX: G45.9 Transient cerebral ischemic attack, unspecified (principal); R47.01 Aphasia; G20 Parkinson's disease; Z66 Do not resuscitate; Z20.822 Contact with and (suspected) exposure to COVID-19; G47.33 Obstructive sleep apnea (adult) (pediatric); E03.9 Hypothyroidism, unspecified; I10 Essential (primary) hypertension; F32.9 Major depressive disorder, single episode, unspecified; F41.9 Anxiety disorder, unspecified; F40.00 Agoraphobia, unspecified; E04.1 Nontoxic single thyroid nodule; G93.89 Other specified disorders of brain; E66.9 Obesity, unspecified; Z79.899 Other long term (current) drug therapy; Z79.890 Hormone replacement therapy; Z68.34 Body mass index [BMI] 34.0-34.9, adult
CPT/HCPCS: 0240U; 36415; 36416; 51701; 70450; 70496; 70498; 70551; 71045; 80048; 80053; 80061; 81003; 82550; 82607; 82746; 83690; 83735; 83880; 84443; 84484; 85025; 85610; 85730; 93005; 93306; 94760; 95712; 95819; 95957; 96374; 96376; J2060; J2997; Q0162

== ENCOUNTER 2020-11-29 15:56 | Emergency (ER) | payer MEDICARE, BC ==
[2020-11-29] MEDS ORDERED: Boostrix 0.5 ML (Tdap) VIAL ONE (17:35)
== END 2020-11-29 19:23 ==
LOC: ERS 15:56
DX: S01.01XA Laceration without foreign body of scalp, initial encounter (principal); S05.11XA Contusion of eyeball and orbital tissues, right eye, initial encounter; S09.90XA Unspecified injury of head, initial encounter; M54.5 Low back pain; G47.30 Sleep apnea, unspecified; E03.9 Hypothyroidism, unspecified; I10 Essential (primary) hypertension; W01.198A Fall on same level from slipping, tripping and stumbling with subsequent striking against other object, initial encounter
CPT/HCPCS: 70450; 72125; 72131; 90471; 90715